=== PATIENT | female | born 1995 | race Caucasian/White ===

== ENCOUNTER 2016-12-15 18:48 | Emergency (ER) | payer OTHER ==
[2016-12-15 18:59] VITALS: BP 157/105; PULSE 92; RESP 18; TEMP 97.9; O2SAT 96
--- NOTE | 2016-12-15 20:20 | EDPHY ---
H & P Time Seen by Provider: 12/15/16 19:53 HPI/ROS: CHIEF COMPLAINT: Head injury, fall HISTORY OF PRESENT ILLNESS: The patient is a 21-year-old female who presents to the emergency department after falling and striking her head last evening. Patient states he was intoxicated and does not recall the event. Her friend was present. She states she did not lose consciousness. No nausea or vomiting at the time of the incident. No nausea vomiting today. She has had mild ongoing headache. She also complains of pain at the bridge of her nose. She has been concerned that her nose is swollen. No neck pain. No visual change. No focal neurologic deficits. REVIEW OF SYSTEMS: My complete review of systems is negative except as mentioned in the HPI. Past Medical/Surgical History: Includes anemia, attention deficit hyperactivity disorder Past surgical history: Negative Smoking Status: Never smoked Physical Exam: Vitals noted GENERAL: Well-appearing, in no acute distress, alert. HEAD: No evidence of trauma. EYES: PERRLA, EOMI, normal to inspection. ENT: Airway intact, no dental or oral injury, no malocclusion, no hemotympanum. The patient has mild swelling over the bridge of her nose. There is a small abrasion. There is no palpable bony abnormality or deformity. NECK: The trachea is midline. There is no crepitus. The C-spine is nontender. NEXUS criteria is negative (no midline tenderness, no distracting injury, no altered mental status, no recent alcohol use, no focal neurologic deficit). RESPIRATORY: Clear to auscultation bilaterally, no rales, rhonchi or wheezing. There is no crepitus or palpable rib fractures. CVS: Regular rate and rhythm, no rubs, murmurs, or gallops. ABDOMEN: Soft, nontender, nondistended, normal bowel sounds, no bruising or abrasions. Pelvis: Stable. No tenderness palpation. Hips full range of motion. BACK: Normal to inspection, no spinal tenderness, no spinal step off, no notable bruising or abrasions. SKIN: Normal color, warm, dry. No pallor or diaphoresis. EXTREMITIES: Atraumatic, neurovascularly intact distally in all extremities, pelvis is stable , hips with full range of motion, moves all extremities freely. NEURO/PSYCH: Higher functions: Alert and Oriented x3. Normal speech and cognition. Normal mood and affect. Cranial nerves: Normal as tested. Cerebellar: Normal as tested. Good finger to nose, good [id number], normal gait. Peripheral exam: Normal motor exam. Normal sensation. Normal reflexes. Constitutional: Initial Vital Signs Temperature (C) 36.6 C 12/15/16 18:53 Heart Rate 92 12/15/16 18:53 Respiratory Rate 18 12/15/16 18:53 Blood Pressure 157/105 H 12/15/16 18:53 O2 Sat (%) 96 12/15/16 18:53 O2 Delivery Mode Room Air Allergies/Adverse Reactions: sulfamethoxazole [From Bactrim] Allergy (Intermediate, Verified 12/15/16 19:00) Hives trimethoprim [From Bactrim] Allergy (Intermediate, Verified 12/15/16 19:00) Hives cefprozil [From Cefzil] Allergy (Unknown, Verified 12/15/16 19:00) Home Medications: Medication Instructions Recorded methYLPHENIDATE HCL [Ritalin 10mg 10 mg PO 12/15/16 (*)] Medical Decision Making ED Course/Re-evaluation: I discussed possible etiologies with the patient. I answered all her questions. At this time, based on her presentation and findings are not feel she needs CT imaging of her head or face. I explained this at length. The patient will be given follow-up with Dr. Dasilva. She also be given follow- up with ENT. She is given warnings prior to leaving. She was given concussion precautions. Differential Diagnosis: My differential includes but is not limited to contusion, abrasion, no fracture , subarachnoid hemorrhage, subdural hematoma, epidural hematoma, concussion Departure - Departure Disposition: Home, Routine, Self-Care Clinical Impression: Head injury Qualifiers: Encounter type: initial encounter Qualified Code(s): S09.90XA - Unspecified injury of head, initial encounter Contusion, nose Qualifiers: Encounter type: initial encounter Qualified Code(s): S00.33XA - Contusion of nose, initial encounter Condition: Good Instructions: Head Injury (ED) Additional Instructions: Return with increasing headache, nausea, vomiting, weakness, numbness or any other concerns. Follow up with ENT if you note an abnormally shaped nose when the swelling resolves or you have difficulty breathing. Referrals: Eden Dasilva MD [Medical Doctor] - 5-7 days, call for appt. Walker Monteiro MD [Medical Doctor] - 5-7 days, call for appt.
== END 2016-12-15 20:29 | disposition home or self-care (01) ==
DX: S09.90XA Unspecified injury of head, initial encounter (principal); S00.33XA Contusion of nose, initial encounter; W01.198A Fall on same level from slipping, tripping and stumbling with subsequent striking against other object, initial encounter

== ENCOUNTER 2018-05-26 00:23 | Emergency (ER) | payer OTHER ==
[2018-05-26 00:34] VITALS: BP 132/88
[2018-05-26] MEDS ORDERED: AMOXICILLIN/CLAVULANATE POT 875/125 MG TAB PO ONE (00:40)
--- NOTE | 2018-05-26 00:40 | EDPHY ---
H & P Stated Complaint: Infected R middle finger, draining, swollen Time Seen by Provider: 05/26/18 00:34 HPI/ROS: HPI: This is a 22-year-old female who presents with Chief Complaint: Infected R middle finger, draining, swollen Location: Right middle finger Quality: Infection Duration: 4 days Signs and Symptoms: No bleeding, no radiation, no numbness, no weakness, no tingling, no incontinence, no decreased range of motion, + swelling, + pain, no fever, + skin color changes Timing: Worsening Severity: Moderate Context: Patient is right-hand dominant, presents with 4 day history of infected right middle finger from chewing on her hangnail. She reports that she was seen at urgent care yesterday and advised to perform Betadine scrubs and if this did not improve her infection she was supposed to start doxycycline. Patient reports that the area is tender to touch, warm, red. She denies radiation, discharge, weakness, decreased range of motion. Modifying Factors: Betadine scrubs Comment: ROS: A comprehensive 10 system review of systems is otherwise negative aside from elements mentioned in the history of present illness. MEDICAL/SURGICAL/SOCIAL HISTORY: Medical history: Anemia, attention deficit hyperactivity disorder Surgical history: Denies Social history: Student at [employer]. Nonsmoker. CONSTITUTIONAL: Nontoxic-appearing young adult white female, awake and alert, no obvious distress HEENT: Atraumatic and normocephalic. NECK: supple, no midline tenderness Cardiovascular: Normal S1/S2, regular rate, regular rhythm, without murmur rub or gallop. PULMONARY/CHEST: Symmetrical and nontender. Clear to auscultation bilaterally. Good air movement. No accessory muscle usage. ABDOMEN: Soft, nondistended, nontender. EXTREMITIES: 2/2 pulses, strength 5/5, right middle finger shows erythema, edema and pain at the proximal nail fold; fluctuance noted. DIP/PIP/MCP flexion/ extension intact with good light touch sensation. no deformities, no clubbing, no cyanosis or edema. NEUROLOGICAL: no focal neuro deficits. GCS 15. Light touch sensation intact. SKIN: Warm and dry, no erythema. no rash. Good capillary refill. Source: Patient Exam Limitations: No limitations - Personal History LMP (Females 10-55): 1-7 Days Ago Current Tetanus/Diphtheria Vaccine: Yes Current Tetanus Diphtheria and Acellular Pertussis (TDAP): Yes - Medical/Surgical History Hx Asthma: No Hx Chronic Respiratory Disease: No Hx Diabetes: No Hx Cardiac Disease: No Hx Renal Disease: No Hx Cirrhosis: No Hx Alcoholism: No Hx HIV/AIDS: No Hx Splenectomy or Spleen Trauma: No Other PMH: anemia. ADHD - Social History Smoking Status: Never smoked Constitutional: Initial Vital Signs Temperature (C) 36.9 C 05/26/18 00:29 Heart Rate 72 05/26/18 00:29 Respiratory Rate 18 05/26/18 00:29 Blood Pressure 132/88 H 05/26/18 00:29 O2 Sat (%) 95 05/26/18 00:29 O2 Delivery Mode Room Air Allergies/Adverse Reactions: sulfamethoxazole [From Bactrim] Allergy (Intermediate, Verified 05/26/18 00:29) Hives trimethoprim [From Bactrim] Allergy (Intermediate, Verified 05/26/18 00:29) Hives cefprozil [From Cefzil] Allergy (Unknown, Verified 05/26/18 00:29) Home Medications: Medication Instructions Recorded methYLPHENIDATE HCL [Ritalin 10mg 10 mg PO 12/15/16 (*)] Amoxicillin/Clavulanate Pot 875 mg PO BID #14 tab 05/26/18 [Augmentin 875 MG TAB (*)] Medical Decision Making Procedures: Procedure: Abscess drainage. The patient's abscess was located on the right middle finger. Local anesthesia provided with 2 cc of 1% lidocaine without epinephrine. I obtained verbal consent from the patient to drain the abscess who was informed about the possibility of bleeding and pain. The abscess was incised with 18 gauge needle and 4 ml amount of purulent drainage was expressed. I soaked and irrigated the wound. Bacitracin clean sterile dressing applied. The patient tolerated the procedure well. The procedure was performed by myself. ED Course/Re-evaluation: Vital signs reviewed and stable upon arrival. No systemic signs. Tetanus is up-to-date. Paronychia incision and drainage performed Soaked and irrigated copiously Bacitracin clean sterile dressing applied Given Augmentin prescription for same Written and verbal wound care instructions provided No signs of neurovascular compromise/tenting of skin/compartment syndrome/ extremities and joints examined above and below area of concern and are neurovascularly intact/flexor tenosynovitis. This patient was seen under the supervision of my secondary supervising physician. I evaluated care for this patient independently. Differential Diagnosis: Differential diagnosis includes but is not limited to paronychia, tenosynovitis , felon, herpetic wendy, flexor tenosynovitis Departure - Departure Disposition: Home, Routine, Self-Care Clinical Impression: Paronychia of right middle finger Condition: Good Instructions: Paronychia (ED) Additional Instructions: Keep the dressing dry and in place for 48 hours. After 48 hours, you may remove the dressing; wash the site daily with mild soap and water; then pat dry. Take Tylenol 650 mg every 4 hours and/or Ibuprofen 600 mg every 8 hours with food as needed for pain. Take Augmentin twice daily x7 days. Do not take the doxycycline. Return to the ER immediately if you experience redness, red streaks, have fevers /chills, flu like symptoms, limited range of motion, or any other symptoms that concern you. Referrals: Patient,NotPresent [Unknown] - As per Instructions [facility],. [Clinic] - As per Instructions Prescriptions: Amoxicillin/Clavulanate Pot [Augmentin 875 MG TAB (*)] 875 mg PO BID #14 tab
== END 2018-05-26 01:05 | disposition home or self-care (01) ==
PROC: 0P9T3ZZ Drainage of Right Finger Phalanx, Percutaneous Approach (ICD-10-PCS; principal; 2018-05-26)
DX: L03.011 Cellulitis of right finger (principal)